=== PATIENT | female | born 2000 | race Two or more races ===

== ENCOUNTER 2020-09-26 22:59 | Emergency (ER) | payer MEDICAID, OTHER ==
[~2020-09-26] VITALS: Ht 167.6 cm; Wt 59.9 kg
[2020-09-26 23:01] VITALS: BP 120/69
== END 2020-09-27 04:31 | disposition home or self-care (01) ==
LOC: ER 22:59
DX: J06.9 Acute upper respiratory infection, unspecified (principal); J45.909 Unspecified asthma, uncomplicated; Z20.822 Contact with and (suspected) exposure to COVID-19; Z32.02 Encounter for pregnancy test, result negative
CPT/HCPCS: 36415; 71045; 87426; 99284; C9803; U0003

== ENCOUNTER 2021-04-07 23:14 | Emergency (ER) | payer MEDICAID ==
[~2021-04-07] VITALS: Ht 167.6 cm; Wt 63.5 kg
[2021-04-08 00:30] LABS: Basophils # (auto) 0.1 10 ^3/uL (0-0.2); Basophils % (auto) 0.4 % (0.0-2.0); Eosinophils # (auto) 0.2 10 ^3/uL (0-0.8); Eosinophils % (auto) 1.5 % (0.0-7.0); Hematocrit 34.4 % (36.0-46.0); Hemoglobin 12.1 g/dL (12.2-16.2); Lymphocytes # (auto) 3.1 10 ^3/uL (0.4-5.4); Lymphocytes % (auto) 23.9 % (10.0-50.0); Mean Corpuscular Hgb Conc. 35.1 g/dL (32.0-36.0); Mean Corpuscular Volume 85.5 fL (80.0-100.0); Monocytes # (auto) 0.7 10 ^3/uL (0-1.3); Monocytes % (auto) 5.3 % (0.0-12.0); Neutrophils # (auto) 8.8 10 ^3/uL (1.6-8.6); Neutrophils % (auto) 68.9 % (37.0-80.0); Red Blood Cells 4.02 10^6/uL (4.0-5.20); Red Cell Distribution Width 13.7 % (11.8-14.3); White Blood Cell 12.8 10^3/uL (4.4-10.8)
[2021-04-08 00:47] LABS: Alanine Aminotransferase 15 U/L (13-56); Anion Gap 8 (5-15); Aspartate Aminotransferase 13 U/L (15-37); BUN/Creatinine Ratio 17.4; Blood Urea Nitrogen 8 mg/dL (7-18); Calcium 8.5 mg/dL (8.5-10.1); Carbon Dioxide 21 mmol/L (21-32); Chloride 109 mmol/L (98-107); GFR African American 218 mL/min; GFR Non-African American 181 mL/min; Glucose 78 mg/dL (74-106); Potassium 3.2 mmol/L (3.5-5.1); Sodium 138 mmol/L (136-145)
[2021-04-08 00:52] LABS: Alkaline Phosphatase 53 U/L (45-117); Bilirubin, Total 0.3 mg/dL (0.2-1.0)
[2021-04-08] MEDS ORDERED: POTASSIUM CHL 20 Meq TABLET PO ONE (02:00)
[2021-04-08 03:10] LABS: Urine Bacteria NONE SEEN /hpf (None Seen); Urine Blood Negative /uL (Negative); Urine Mucus FEW (None Seen); Urine Specific Gravity 1.027 (1.001-1.035); Urine WBC 19 /hpf (0 - 5)
[2021-04-08] MEDS ORDERED: cefTRIAXone SOD 1,000 MG VL IM ONE (03:30)
[2021-04-08 04:04] VITALS: BP 94/61
== END 2021-04-08 04:11 | disposition home or self-care (01) ==
LOC: ER 23:14
DX: O23.41 Unspecified infection of urinary tract in pregnancy, first trimester (principal); O99.281 Endocrine, nutritional and metabolic diseases complicating pregnancy, first trimester; E87.6 Hypokalemia; O99.512 Diseases of the respiratory system complicating pregnancy, second trimester; J45.909 Unspecified asthma, uncomplicated; Z3A.10 10 weeks gestation of pregnancy
CPT/HCPCS: 36415; 76801; 80053; 81001; 84484; 84702; 85025; 87426; 93005

== ENCOUNTER 2023-04-28 22:00 | Emergency (ER) | payer MEDICAID ==
[~2023-04-28] VITALS: Ht 170.2 cm; Wt 68.1 kg
[2023-04-28] MEDS ORDERED: LORazepam 2MG/ML-1ML VIAL IV ONE (22:45)
[2023-04-28] MEDS ORDERED: SODIUM CHLORIDE 0.9% 1,000 ML IV ONE (22:45)
[2023-04-28 23:31] LABS: Eosinophils # (auto) 0.1 10 ^3/uL (0-0.8); Hemoglobin 12.2 g/dL (12.2-16.2)
[2023-04-28 23:32] LABS: Basophils # (auto) 0 10 ^3/uL (0-0.2); Basophils % (auto) 0.2 % (0.0-2.0); Eosinophils % (auto) 0.7 % (0.0-7.0); Hematocrit 39.2 % (36.0-46.0); Lymphocytes # (auto) 1.6 10 ^3/uL (0.4-5.4); Lymphocytes % (auto) 12.1 % (10.0-50.0); Mean Corpuscular Hemoglobin 23.6 pg (28.0-32.0); Mean Corpuscular Hgb Conc. 31.2 g/dL (32.0-36.0); Mean Corpuscular Volume 75.6 fL (80.0-100.0); Monocytes # (auto) 0.6 10 ^3/uL (0-1.3); Monocytes % (auto) 4.6 % (0.0-12.0); Neutrophils # (auto) 10.7 10 ^3/uL (1.6-8.6); Neutrophils % (auto) 82.4 % (37.0-80.0); Red Blood Cells 5.19 10^6/uL (4.0-5.20)
[2023-04-28 23:44] LABS: Albumin 4.2 g/dL (3.4-5.0); Calcium 9.2 mg/dL (8.5-10.1); Magnesium 2.4 mg/dL (1.6-2.6)
[2023-04-28 23:47] LABS: BUN/Creatinine Ratio 16.1 (10.0-20.0); Bilirubin, Total 0.2 mg/dL (0.2-1.0)
[2023-04-29 00:45] VITALS: BP 107/71; RESP 18; TEMP 98.9; O2SAT 97
[2023-04-29 01:04] VITALS: PULSE 143
== END 2023-04-29 02:04 | disposition home or self-care (01) ==
LOC: ER 22:00
DX: T63.2X1A Toxic effect of venom of scorpion, accidental (unintentional), initial encounter (principal); R10.2 Pelvic and perineal pain; M79.672 Pain in left foot; D72.829 Elevated white blood cell count, unspecified; N39.0 Urinary tract infection, site not specified; R00.0 Tachycardia, unspecified; J45.909 Unspecified asthma, uncomplicated; Z79.899 Other long term (current) drug therapy; Z88.0 Allergy status to penicillin; Y92.89 Other specified places as the place of occurrence of the external cause
CPT/HCPCS: 36415; 80053; 83690; 83735; 84484; 84702; 85025; 93005; 96360; 99284; J7030

== ENCOUNTER 2024-01-19 08:54 | Emergency (ER) | payer MEDICAID ==
[~2024-01-19] VITALS: Ht 165.1 cm; Wt 67.6 kg
[2024-01-19 09:40] VITALS: BP 115/78; PULSE 120; RESP 18; TEMP 98.1; O2SAT 99
[2024-01-19] MEDS: cefTRIAXone SOD 1,000 MG VL IM ONE (10:01)
[2024-01-19] MEDS ORDERED: CLIN1CAP70 PO (10:01)
[2024-01-19] MEDS ORDERED: IBUP-1454 PO (10:01)
== END 2024-01-19 10:24 | disposition home or self-care (01) ==
LOC: ER 08:54
DX: K04.7 Periapical abscess without sinus (principal); F41.9 Anxiety disorder, unspecified; J45.909 Unspecified asthma, uncomplicated; Z87.891 Personal history of nicotine dependence; Z88.0 Allergy status to penicillin; Z79.899 Other long term (current) drug therapy
CPT/HCPCS: 96372; 99283; J0696